=== PATIENT | female | born 2000 | race Caucasian/White ===

== ENCOUNTER 2024-02-19 12:30 | Outpatient (RCR) | payer BC, OTHER, SELFPAY ==
--- NOTE | 2023-09-29 12:17 | HP.PTEVAL_ITS ---
Patient's Visit Information Visit Information Visit Information: MARTA MALHOTRA is a 23 year old F referred to Physical Therapy by JOHN PAUL ZARATE with a diagnosis of R ACL tear and meniscal tear s/p meniscus allograft/aCL repair 09/22/23. Date of Evaluation: 09/29/23 Physical Therapist: Yovani Cm, DPT, OCS, CSCS Visit Plan Frequency: 1-2x /Week Duration: 4 Months Plan: next session: check ROM(can open to 90 the brace), patellar mobs, HS stretch gently, SLR to 3x10, PROM within limits, VASO and ice as needed, FES to quad 1-2x/week(pt only has 10 visits of PT in their insurance), follow protocol scanned and in folder for meniscal allograft transplant Dr. Zarate. NWB until 6 week(11/03), 60 degree flexion limit until 10/06 then 90 until 11/03. ROM, strength within protocol and gait training along with FES, VASO manual patellar mobs and stretching will be used. Subjective Subjective: Hurt knee 10 yrs ago. ACL and meniscus surgery 4 x since. Happened sliding into base in softball initially and waited a yr and hurt it again teeearing meniscus jumping as cheerleader. First surgery at [facility]. Tore the graft again running and repaired again [facility]. Couple yrs ago at [facility] and [place] sore fri [place] stairs and went to [facility] and tore the graft again or second surgery failed. medial meniscus also shot. therefore had medial meniscus transplant and ACL repaired from cadaver on 09/22/23. One week out now and is very sore. HEP: AP and gentle bednig to 60 degrees. Sleeping is Ok with brace on and has ice machine. Elevates it. Hurts to rule. 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 Desk and walking around and talking to people. Off right now and will be off for a while. Ex science degree. Hobbies: enjoys walking dog, siblings to keep up with that are younger. Basics: lives with boyfrien two story and slides up and down the stairs. Dress self except needs help with pants over foot.. bathroom I, Uses stool to shower and needs help onto it. Pain R knee: Pain Intensity (Out of 10): 4 Pain Intensity Range: 2 and 8 Comment: sharp in anterior knee. Objective Objective: R girth 23 and L 25 at joint line, 6 inch above R 25 and L 26.5 inches. Walks NWB R into PT with brace on and locked, limited to 60 degrees currently when unlocked. Transfers bed and chair I. Hip and ankle AROM B WNL and easy without increased pain. L knee 0-135 AROM, scar anterior patella tender to touch. R knee -4 extension to 48 flexion at first then 52 after heel slides. patella very stiff on R vs L. incisions not visualized as she is well wrapped today and not having concerns and sees doctor tomorrow. Sensation LE WNL to gross light touch. strength R hip 3+ with pain with SLR slightly, L hip 4/5 R knee not tested, L knee 4+/5 ankles 4+/5 B. Balance/Special Test Scores Lower Extremity Functional Score: 9 Goals Goal 1:: progress per protocol ROM of knee to 90 at 6 week shefali and sleep through the night. Goal Time Frame: 4-6 Weeks Goal 2:: Painfree at rest Goal Time Frame: 4-6 Weeks Goal 3:: Walk without gait deviations without pain and steps as allowed in protocol without pain or deviation Goal Time Frame: 8-12 Weeks Goal 4:: Pt feel 90% back to normal without R knee pain or funcitonal deficits Goal Time Frame: 12-16 Weeks Goal 5:: Return to work without limitations Goal Time Frame: 12-16 Weeks Rehabilitation Potential Physical Therapy Diagnosis: R knee pain , stiffness and weakness limiting funciton. Rehabilitation Potential: Good Anticipated Interventions Patient/Client Instruction: Educate patient on: Condition, Plan of Care and Risk Factors For the Purpose of:: To decrease pain, To decrease swelling/inflammation, To increase ROM and To improve nutrient delivery to tissue Therapeutic Exercise to Include: Strength training, Balance training, Flexibilty training, Gait and locomotor training, Passive ROM and Active ROM For the Purpose of:: To decrease pain, To increase ROM, To improve nutrient delivery to tissue, To increase oxygenation perfusion, To improve muscle performance and motor function, To increase tolerance to activity/condition/position and To improve ability of physical actions for home/community/work/leisure Manual Therapy Techniques to Include: Mobilization, Passive ROM and Soft tissue mobilization For the Purpose of:: To decrease pain, To decrease swelling/inflammation, To increase ROM, To improve nutrient delivery to tissue, To improve muscle performance and motor function, To increase tolerance to activity/condition/position, To improve ability of physical actions for home/community/work/leisure and To improve gait and locomotor functions Functional electric stimulation: Yes (R quad) Cryotherapy (ice pack, ice massage): Yes Vasopneumatic device: Yes For the Purpose of:: To decrease swelling/inflammation, To increase ROM, To improve muscle performance and motor function and To increase tolerance to activity/condition/position Text: Thank you for the opportunity to evaluate your patient. For Medicare and Medicare HMO plans, please review the plan of care and approve it. It will need to be FAXED BACK to us at [phone] for Medicare purposes. For Medicare only, by signing this I certify the plan of care. Please let me know if there are questions or concerns regarding this plan of care. Physician Signature: Date:
--- NOTE | 2024-01-22 13:29 | HP.PTREVAL_ITS ---
Re-Evaluation Intro: JOHN PAUL NICHOLS, It has been my pleasure to treat MARTA MALHOTRA over the last 19 visits for R ACL tear and meniscal tear s/p meniscu 09/21s allograft/aCL repair 09/22/23. Please see the progress note below for an update on the physical therapy plan of care! Subjective Subjective: Going good. A lot better than a month ago. No real pain, still feels stiff when straighten it and bend it. Sleep is good. Working full go 8 + hour shifts. No problems after work but may be a little sore at times. Life pretty normal at time, steps a little difficult with fatigue sometimes but not always. usually in am or at end of day. Hobbies: wants to run and jog and jump when allowed. Is taking longer walks and doing exercises at gym and home. Saw doctor last Thursday and looks good. F/u again in March.Doing HEP daily. Bike at work, Objective Objective/Function: 0-120 AROM R knee, PROM to 127 but stiff and painful at end range transiently. L knee goes to 133 strength is 4+/5 in hip R and 4+ in knee ext and 5/5 in flexion. walking without gait abnormalities after first coupkle stiff stgeps today. Steps reciprocally without rail with just some slight eccentric weakness descending R. Overall doing well, needs more aggressive strength allowed in protocol and ROM progression New goals fair prognosis Plan Plan Plan: 2x/week for 4 weeks to wrok to I with gym machine exercises for core, UE, LE and give list for I aat her gym, supplement with db workout via HEP. Should be I with strength by february Wrok on end range flexion ROM also. After I with strength , will see monthly for progressions until allowed to run. Balance/Gait/Functional tests Balance/Special Test Scores Lower Extremity Functional Score: 50 Goals Goals Goal 1:: I approp gym based program for strength at her community gym Goal Time Frame: 2-4 Weeks Goal Progress: NEW GOAL Goal 2:: plan to start jogging around 8 months as protocol allows. Goal Time Frame: 12-16 Weeks Goal Progress: NEW GOAL Goal 3:: Walk without gait deviations without pain and steps as allowed in protocol without pain or deviation Goal Time Frame: 8-12 Weeks Goal Progress: Goal Met Goal 4:: Pt feel 90% back to normal without R knee pain or funcitonal deficits Goal Time Frame: 12-16 Weeks Goal Progress: Progressing Goal 5:: Return to work without limitations Goal Time Frame: 12-16 Weeks Goal Progress: Goal Met Goal 6:: AROM R knee 132 without pain. Goal Time Frame: 4-6 Weeks Goal Progress: NEW GOAL Anticipated Interventions Anticipated Interventions Patient/Client Instruction: Educate patient on: Condition, Plan of Care and Risk Factors For the Purpose of:: To decrease pain, To decrease swelling/inflammation, To increase ROM and To improve nutrient delivery to tissue Therapeutic Exercise to Include: Strength training, Balance training, Flexibilty training, Gait and locomotor training, Passive ROM and Active ROM For the Purpose of:: To decrease pain, To increase ROM, To improve nutrient delivery to tissue, To increase oxygenation perfusion, To improve muscle performance and motor function, To increase tolerance to activity/condition/position and To improve ability of physical actions for home/community/work/leisure Manual Therapy Techniques to Include: Mobilization, Passive ROM and Soft tissue mobilization For the Purpose of:: To decrease pain, To decrease swelling/inflammation, To i ncrease ROM, To improve nutrient delivery to tissue, To improve muscle performance and motor function, To increase tolerance to activity/condition/position, To improve ability of physical actions for home/community/work/leisure and To improve gait and locomotor functions Functional electric stimulation: Yes (R quad) Cryotherapy (ice pack, ice massage): Yes Vasopneumatic device: Yes For the Purpose of:: To decrease swelling/inflammation, To increase ROM, To improve muscle performance and motor function and To increase tolerance to activity/condition/position Re-Evaluation Ending Re-evaluation ending: Please do not hesitate to contact me at [phone] by phone or if you have questions or concerns regarding this new plan of care! Sincerely, Yovani Cm, DPT, OCS, CSCS
--- NOTE | 2024-02-19 13:10 | HP.PTDCSUM ---
Discharge Summary D/C summary: It has been my pleasure to treat MARTA MALHOTRA referred by JOHN PAUL NICHOLS, with the diagnosis of R ACL tear and meniscal tear s/p meniscu 09/21s allograft/aCL repair 09/22/23 for a total of 25 visit(s). Discharge Date: 02/19/24 Please see the following information for a summary of their discharge status. Subjective Subjective: Pretty good. Will continue in gym at [employer] office. Gets sore now and then after work but not done. Sleep is good. Working full duty without problems. Activities at home are normal . No jogging for a while per protocol and to doctor in March Pain R knee: Pain Intensity (Out of 10): 0 Overall Improvement % Improvement: 80 Objective Objective/Function: 0-130 aROM R knee adn 136 L knee. Wa;randall without antalgia, steps reciprocal without rail. Good strength with hard quad and HS contraction without increased pain. good knowledge adn motivation to continue strengthening on her own at her gym Goals Goal 1:: I approp gym based program for strength at her community gym Goal Progress: Goal Met Goal 2:: plan to start jogging around 8 months as protocol allows. Goal Progress: Goal Met Goal 3:: Walk without gait deviations without pain and steps as allowed in protocol without pain or deviation Goal Progress: Goal Met Goal 4:: Pt feel 90% back to normal without R knee pain or funcitonal deficits Goal Progress: 80% Goal 5:: Return to work without limitations Goal Progress: Goal Met Goal 6:: AROM R knee 132 without pain. Goal Progress: 130, funcitonal Plan Plan: d/c, she may want help with return to jogging program once she is allwoed and released by doctor adn should be sent back if that is the case. D/C Information d/c sentence: If there are questions or concerns regarding this patient's physical therapy, please feel free to call me at [phone]. Thank you for the referral of this patient. Sincerely, Yovani Cm, DPT, OCS, CSCS Balance/Gait/Functional tests Balance/Special Test Scores Lower Extremity Functional Score: 56 Improvement % Improvement: 80
== END 2024-02-19 13:19 | disposition home or self-care (01) ==
LOC: PT 12:30
PROVIDERS: PCP Pediatrics
DX: T84.89XD Other specified complication of internal orthopedic prosthetic devices, implants and grafts, subsequent encounter (principal); S83.281D Other tear of lateral meniscus, current injury, right knee, subsequent encounter; S83.241D Other tear of medial meniscus, current injury, right knee, subsequent encounter
CPT/HCPCS: 97014; 97016; 97110; 97116; 97140; 97161; 97164; 97530; G0283